=== PATIENT | female | born 1990 | race Caucasian/White ===

== ENCOUNTER 2016-12-03 17:35 | Emergency (ER) | payer MEDICAID ==
[2016-12-03 17:46] VITALS: BP 127/97; PULSE 101; RESP 16; TEMP 98.6; O2SAT 96
--- NOTE | 2016-12-03 17:49 | EDPHY ---
H & P Stated Complaint: Sore throat and sinus congestion x 3 days. Time Seen by Provider: 12/03/16 17:45 HPI/ROS: CHIEF COMPLAINT: sinus congestion, sore throat HISTORY OF PRESENT ILLNESS: patient is a 26-year-old female who comes to the emergency department complaining of a runny nose and sinus congestion as well as mild sore throat began on Thursday 3 days ago. She has not had a fever. No chest pain or shortness of breath. No abdominal symptoms. No sick contacts. She states that it began after she was working outside in the cold. mild cough. REVIEW OF SYSTEMS: Constitutional: denies: chills, fever, recent illness, recent injury EENTM: See HPI Respiratory: See HPI Cardiac: denies: chest pain, irregular heart rate, lightheadedness, palpitations Gastrointestinal/Abdominal: denies: abdominal pain, diarrhea, nausea, vomiting, blood streaked stools Genitourinary: denies: dysuria, frequency, hematuria, pain Musculoskeletal: denies: joint pain, muscle pain Skin: denies: lesions, rash, jaundice, bruising Neurological: denies: headache, numbness, paresthesia, tingling, dizziness, weakness Hematologic/Lymphatic: denies: blood clots, easy bleeding, easy bruising Immunologic/allergic: denies: HIV/AIDS, transplant EXAM: GENERAL: Well-appearing, well-nourished and in no acute distress. HEAD: Atraumatic, normocephalic. EYES: Pupils equal round and reactive to light, extraocular movements intact, sclera anicteric, conjunctiva are normal. ENT: TMs normal, sinus congestion, oropharynx clear without exudates. Moist mucous membranes. NECK: Normal range of motion, supple without lymphadenopathy or JVD. LUNGS: Breath sounds clear to auscultation bilaterally and equal. No wheezes rales or rhonchi. HEART: Regular rate and rhythm without murmurs, rubs or gallops. ABDOMEN: Soft, nontender, normoactive bowel sounds. No guarding, no rebound. No masses appreciated. BACK: No CVA tenderness, no spinal tenderness, step-offs or deformities EXTREMITIES: Normal range of motion, no pitting or edema. No clubbing or cyanosis. NEUROLOGICAL: Cranial nerves II through XII grossly intact. Normal speech, normal gait. 5/5 strength, normal movement in all extremities, normal sensation PSYCH: Normal mood, normal affect. SKIN: Warm, dry, normal turgor, no visible rashes or lesions. Source: Patient Exam Limitations: No limitations - Personal History LMP (Females 10-55): 22-28 Days Ago Current Tetanus Diphtheria and Acellular Pertussis (TDAP): Yes Tetanus Vaccine Date: within 10 years - Medical/Surgical History Hx Asthma: No Hx Chronic Respiratory Disease: No Hx Diabetes: No Hx Cardiac Disease: No Hx Renal Disease: No Hx Cirrhosis: No Hx Alcoholism: No Hx HIV/AIDS: No Hx Splenectomy or Spleen Trauma: No Other PMH: denies - Family History Significant Family History: No pertinent family hx - Social History Smoking Status: Current every day smoker Alcohol Use: None Drug Use: None Constitutional: Initial Vital Signs Temperature (C) 37 C 12/03/16 17:37 Heart Rate 101 H 12/03/16 17:37 Respiratory Rate 16 12/03/16 17:37 Blood Pressure 127/97 H 12/03/16 17:37 O2 Sat (%) 96 12/03/16 17:37 O2 Delivery Mode Room Air Allergies/Adverse Reactions: minocycline [Minocycline] Allergy (Severe, Verified 12/03/16 17:46) Anaphylaxis Home Medications: Medication Instructions Recorded NK [No Known Home Meds] 12/03/16 Medical Decision Making ED Course/Re-evaluation: We discussed the lab results. we discussed treatment for viral respiratory symptoms. I will give her a dose of Decadron. I also recommended decongestants , rest and hydration. She understands this plan. We discussed the possibility of positive strep PCR tomorrow however this appears much more upper respiratory. Differential Diagnosis: Partial list of the Differential diagnosis considered include but were not limited to; upper respiratory tract infection, strep throat, sinusitis and although unlikely based on the history and physical exam, I also considered pneumonia, the abscess, the meningitis. I discussed these differential diagnoses and the plan with the [patient] as well as the usual and expected course. The patient understands that the diagnosis is provisional and that in medicine we are not always correct and that further workup is often warranted. Usual and customary warnings were given. All of the patient's questions were answered. The patient was instructed to return to the emergency department should the symptoms at all worsen or return, otherwise to followup with the physician as we discussed. - Data Points Laboratory Results: 12/03/16 12/03/16 Unknown 17:42 Group A Strep Screen NEGATIVE (NEGATIVE) Group A Strep DNA Pending Medications Given: Discontinued Medications Dexamethasone (Decadron) 10 mg PO EDNOW ONE Stop: 12/03/16 18:10 Last Admin: 12/03/16 18:13 Dose: 10 mg Departure - Departure Disposition: Home, Routine, Self-Care Clinical Impression: Upper respiratory tract infection Qualifiers: URI type: unspecified viral URI Qualified Code(s): J06.9 - Acute upper respiratory infection, unspecified Condition: Fair Instructions: Upper Respiratory Infection (ED) Referrals: Mariano Hector DO [Medical Doctor] - As per Instructions
[2016-12-03] MEDS ORDERED: DEXAMETHASONE 4 MG TAB PO ONE (18:09)
== END 2016-12-03 18:15 | disposition home or self-care (01) ==
LOC: CED 17:35
DX: J06.9 Acute upper respiratory infection, unspecified (principal); F17.200 Nicotine dependence, unspecified, uncomplicated
CPT/HCPCS: 87880-PO

== ENCOUNTER 2017-08-23 13:40 | Emergency (ER) | payer OTHER, MEDICAID ==
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
[2017-08-23 14:05] VITALS: RESP 16; TEMP 97.9
[2017-08-23 14:18] VITALS: PULSE 61
[2017-08-23] MEDS ORDERED: IOPAMIDOL (ISOVUE-300) 100 ML BTL ONE (15:04)
[2017-08-23 16:31] VITALS: BP 116/77; O2SAT 96
== END 2017-08-23 16:15 | disposition home or self-care (01) ==
LOC: EDUNIT#
DX: S39.91XA Unspecified injury of abdomen, initial encounter (principal); S09.90XA Unspecified injury of head, initial encounter; V47.5XXA Car driver injured in collision with fixed or stationary object in traffic accident, initial encounter; Y92.410 Unspecified street and highway as the place of occurrence of the external cause; Y99.8 Other external cause status; Y93.89 Activity, other specified
CPT/HCPCS: 82947-QW; Q9967

== ENCOUNTER 2017-08-25 15:34 | Emergency (ER) | payer OTHER, MEDICAID ==
[2017-08-25 15:42] VITALS: O2SAT 98
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
[2017-08-25 16:53] LABS: PLATELET COUNT 367 10^3/uL (150-400)
[2017-08-25 17:48] VITALS: RESP 16
[2017-08-25 18:44] VITALS: BP 123/76; PULSE 81; TEMP 98.6
== END 2017-08-25 18:35 | disposition home or self-care (01) ==
DX: F91.9 Conduct disorder, unspecified (principal); F17.200 Nicotine dependence, unspecified, uncomplicated
CPT/HCPCS: 80305; G0480

== ENCOUNTER 2017-11-05 22:30 | Emergency (ER) | payer MEDICAID, OTHER ==
[2017-11-05] MEDS ORDERED: LORazepam 1 MG TAB PO ONE (23:02)
--- NOTE | 2017-11-05 23:03 | EDPHY ---
H & P Stated Complaint: detoxing from heroin and cocaine Time Seen by Provider: 11/05/17 22:42 HPI/ROS: Chief Complaint: Body aches, confusion, heroin and cocaine withdrawal HPI: A 27-year-old woman with a history of polysubstance abuse is [facility] complaining of body pain and withdrawal from her when and cocaine. Patient states she last used yesterday. Patient also states she has a history of schizophrenia, is not currently on any medications. She does state that she is having auditory hallucinations with voices that are telling her to "shut up". Patient denies any injuries. No nausea or vomiting. No fevers or chills. Patient is very disorganized answering few questions. She is not able to tell me where she is. ROS: 10 point Review of Systems is negative except as noted in the HPI. PMH: Schizophrenia, polysubstance abuse Social History: Positive smoking, positive alcohol, heroin and cocaine Family History: non-contributory Physical Exam: Gen: Awake, Alert, disorganized, seems to be responding to internal stimuli HEENT: Nose: no rhinorrhea Eyes: PERRLA, EOMI Mouth: Moist mucosa Neck: Supple, no JVD Chest: nontender, lungs clear to auscultation Heart: S1, S2 normal, no murmur Abd: Soft, non-tender, no guarding Back: no CVA tenderness, no midline tenderness Ext: no edema, non-tender Skin: no rash Neuro: CN II-XII intact, Sensation grossly intact, Strength 5/5 in bilateral upper and lower extremities - Personal History LMP (Females 10-55): 15-21 Days Ago Current Tetanus/Diphtheria Vaccine: Yes Current Tetanus Diphtheria and Acellular Pertussis (TDAP): Yes Tetanus Vaccine Date: within 10 years - Medical/Surgical History Hx Asthma: No Hx Chronic Respiratory Disease: No Hx Diabetes: No Hx Cardiac Disease: No Hx Renal Disease: No Hx Cirrhosis: No Hx Alcoholism: No Hx HIV/AIDS: No Hx Splenectomy or Spleen Trauma: No Other PMH: heroin/cocaine abuse - Social History Smoking Status: Current every day smoker Constitutional: Initial Vital Signs Temperature (C) 36.7 C 11/05/17 22:33 Heart Rate 123 H 11/05/17 22:33 Respiratory Rate 20 11/05/17 22:33 Blood Pressure 130/94 H 11/05/17 22:33 O2 Sat (%) 96 11/05/17 22:33 O2 Delivery Mode Room Air Allergies/Adverse Reactions: minocycline [Minocycline] Allergy (Severe, Verified 08/25/17 15:39) Anaphylaxis Home Medications: Medication Instructions Recorded NK [No Known Home Meds] 12/03/16 Medical Decision Making ED Course/Re-evaluation: Patient is improved. This is after 2 mg of Ativan. She is calm. She is without complaint. Patient states now that she has not been hallucinating and that was a confusion from earlier. She is requesting to go back to detox. - Data Points Laboratory Results: Laboratory Results 11/05/17 23:30 11/05/17 23:30 11/06/17 11/05/17 11/05/17 01:25 23:30 23:30 WBC RBC Hgb Hct MCV MCH MCHC RDW Plt Count MPV Neut % (Auto) Lymph % (Auto) [place] % (Auto) Eos % (Auto) Baso % (Auto) Nucleat RBC Rel Count Absolute Neuts (auto) Absolute Lymphs (auto) Absolute Monos (auto) Absolute Eos (auto) Absolute Basos (auto) Absolute Nucleated RBC Immature Gran % Immature Gran # Sodium 141 mEq/L mEq/L (135-145) Potassium 4.5 mEq/L mEq/L (3.5-5.2) Chloride 104 mEq/L mEq/L (97-110) Carbon Dioxide 24 mEq/l mEq/l (22-31) Anion Gap 13 mEq/L mEq/L (8-16) BUN 18 mg/dL mg/dL (7-23) Creatinine 0.5 mg/dL L mg/dL (0.6-1.0) Estimated GFR > 60 Glucose 102 mg/dL H mg/dL (70-100) Calcium 10.7 mg/dL H mg/dL (8.5-10.4) Phosphorus 3.8 mg/dL mg/dL (2.5-4.5) Beta HCG, Qual NEGATIVE Urine Opiates Screen NEGATIVE (NEGATIVE) Urine Barbiturates NEGATIVE (NEGATIVE) Ur Phencyclidine Scrn NEGATIVE (NEGATIVE) Ur Amphetamine Screen NEGATIVE (NEGATIVE) U Benzodiazepines Scrn NON-NEGATIVE H (NEGATIVE) Urine Cocaine Screen NEGATIVE (NEGATIVE) U Marijuana (THC) Screen NEGATIVE (NEGATIVE) Ethyl Alcohol < 10 mg/dL mg/dL (0-10) 11/05/17 23:30 WBC 14.22 10^3/uL H 10^3/uL (3.80-9.50) RBC 4.72 10^6/uL 10^6/uL (4.18-5.33) Hgb 14.9 g/dL g/dL (12.6-16.3) Hct 42.8 % % (38.0-47.0) MCV 90.7 fL fL (81.5-99.8) MCH 31.6 pg pg (27.9-34.1) MCHC 34.8 g/dL g/dL (32.4-36.7) RDW 13.3 % % (11.5-15.2) Plt Count 411 10^3/uL H 10^3/uL (150-400) MPV 8.5 fL L fL (8.7-11.7) Neut % (Auto) 78.0 % H % (39.3-74.2) Lymph % (Auto) 10.8 % L % (15.0-45.0) [place] % (Auto) 10.4 % % (4.5-13.0) Eos % (Auto) 0.0 % L % (0.6-7.6) Baso % (Auto) 0.4 % % (0.3-1.7) Nucleat RBC Rel Count 0.0 % % (0.0-0.2) Absolute Neuts (auto) 11.09 10^3/uL H 10^3/uL (1.70-6.50) Absolute Lymphs (auto) 1.54 10^3/uL 10^3/uL (1.00-3.00) Absolute Monos (auto) 1.48 10^3/uL H 10^3/uL (0.30-0.80) Absolute Eos (auto) 0.00 10^3/uL L 10^3/uL (0.03-0.40) Absolute Basos (auto) 0.06 10^3/uL 10^3/uL (0.02-0.10) Absolute Nucleated RBC 0.00 10^3/uL 10^3/uL (0-0.01) Immature Gran % 0.4 % % (0.0-1.1) Immature Gran # 0.05 10^3/uL 10^3/uL (0.00-0.10) Sodium Potassium Chloride Carbon Dioxide Anion Gap BUN Creatinine Estimated GFR Glucose Calcium Phosphorus Beta HCG, Qual Urine Opiates Screen Urine Barbiturates Ur Phencyclidine Scrn Ur Amphetamine Screen U Benzodiazepines Scrn Urine Cocaine Screen U Marijuana (THC) Screen Ethyl Alcohol Medications Given: Discontinued Medications Sodium Chloride (Ns) 1,000 mls @ 0 mls/hr IV ONCE ONE PRN Reason: Wide Open Stop: 11/05/17 23:37 Last Admin: 11/05/17 23:41 Dose: 1,000 mls Lorazepam (Ativan Injection) 2 mg IVP EDNOW ONE Stop: 11/05/17 23:26 Last Admin: 11/05/17 23:41 Dose: 2 mg Departure - Departure Disposition: Home, Routine, Self-Care Clinical Impression: Opioid withdrawal, Cocaine abuse Condition: Good Instructions: Opioid Withdrawal (ED), Cocaine Abuse (ED) Referrals: [facility],. [Clinic] - As per Instructions
[2017-11-05] MEDS ORDERED: LORazepam 2 MG/ML INJ ONE (23:18)
[2017-11-05] MEDS ORDERED: LORazepam 2 MG/ML INJ IVP ONE (23:25)
[2017-11-05] MEDS ORDERED: NS 1,000 ML IV ONE (23:36)
[2017-11-05 23:40] LABS: PLATELET COUNT 411 10^3/uL (150-400)
[2017-11-06 03:42] VITALS: BP 130/78
== END 2017-11-06 03:41 | disposition home or self-care (01) ==
DX: F11.23 Opioid dependence with withdrawal (principal); F14.10 Cocaine abuse, uncomplicated; F17.200 Nicotine dependence, unspecified, uncomplicated
CPT/HCPCS: 80305; 96374; G0480; J2060

== ENCOUNTER 2017-11-15 20:52 | Emergency (ER) | payer MEDICAID ==
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
[2017-11-15] MEDS ORDERED: CHLORDIAZEPOXIDE 25MG PREPK#6 BTL TAKEHOME ONE (22:01)
[2017-11-15 23:23] VITALS: BP 108/74
== END 2017-11-15 23:14 | disposition home or self-care (01) ==
LOC: EDUNIT# → EDBD → EEVIPCON 20:52
DX: F15.10 Other stimulant abuse, uncomplicated (principal); F17.200 Nicotine dependence, unspecified, uncomplicated
CPT/HCPCS: 80305